=== PATIENT | male | born 1985 | race Caucasian/White ===

== ENCOUNTER 2019-06-15 22:51 | Emergency (ER) | payer SELFPAY ==
[~2019-06-15] VITALS: Ht 185.4 cm; Wt 79.2 kg
[~2019-06-15 22:51] MED LIST: CLON1TAB11 PO; ESCI20TA10 PO
--- NOTE | 2019-06-15 22:55 | NUR ---
MAC RN: NOT IN LOBBY
[2019-06-15 22:56] VITALS: BP 129/73
[2019-06-15 23:32] LABS: BASOPHILS % (AUTO) 1 % (0-1); EOSINOPHILS # (AUTO) 0.15 x10^3/uL (0-0.4); EOSINOPHILS % (AUTO) 2 % (1-7); LYMPHOCYTES # (AUTO) 2.16 x10^3/uL (1-3.4); LYMPHOCYTES % (AUTO) 30 % (22-44); MD NO; MEAN CORPUSCULAR HEMOGLOBIN 31.6 pg (27.5-34.5); MEAN CORPUSCULAR HGB CONC 33.7 g/dL (33.2-36.2); MEAN CORPUSCULAR VOLUME 93.8 fL (81-97); MEAN PLATELET VOLUME 8.2 fL (7.4-10.4); MONOCYTES % (AUTO) 8 % (2-9); NEUTROPHILS # (AUTO) 4.26 x10^3/uL (1.8-6.8); NEUTROPHILS % (AUTO) 59 % (42-75); PLATELET COUNT 199 x10^3/uL (130-400); RED BLOOD COUNT 4.16 x10^6/uL (4.38-5.82); RED CELL DISTRIBUTION WIDTH 14.9 % (9.4-14.8)
[2019-06-15 23:43] LABS: ANION GAP 8 mmol/L (5-15); CALCIUM 8.6 mg/dL (8.5-10.1); CHLORIDE 111 mmol/L (98-107); CREATININE 0.79 mg/dL (0.7-1.3)
--- NOTE | 2019-06-16 00:05 | NUR ---
Patient presents to ER with bilateral feet pain and swelling. Patient in room sleeping on [place].
--- NOTE | 2019-06-16 01:04 | NUR ---
Patient discharge instructions given. All questions and concerns addressed. Patient ambulatory with a steady gait. Belongings with patient.
== END 2019-06-16 01:05 | disposition home or self-care (01) ==
LOC: ED 06-16 00:40
DX: I83.12 Varicose veins of left lower extremity with inflammation (principal); I83.11 Varicose veins of right lower extremity with inflammation; M25.571 Pain in right ankle and joints of right foot; M25.572 Pain in left ankle and joints of left foot; F17.210 Nicotine dependence, cigarettes, uncomplicated; F15.10 Other stimulant abuse, uncomplicated
CPT/HCPCS: 36415; 80048; 85025; 99283

== ENCOUNTER 2019-07-27 07:01 | Emergency (ER) | payer MEDICAID ==
[~2019-07-27] VITALS: Ht 188 cm; Wt 78.7 kg
[2019-07-27 07:05] VITALS: BP 140/90
[2019-07-27] MEDS ORDERED: LORazepam 1MG TABLET PO ONE (07:30)
[2019-07-27] MEDS ORDERED: LORazepam 1MG TABLET ONE (07:40)
--- NOTE | 2019-07-27 07:45 | NUR ---
FIRST CONTACT WITH PT. PT STATES "I NEED TO SEE A PSYCHIATRIST. I NEED TO GET BACK ON MY MEDICATIONS" PT FROM [facility], "MY QUALITY OF LIFE HAS GONE FROM A 9 TO A NEGATIVE 2". DENIES SI, "I FEEL LIKE I'M ON THE VERGE OF A PSYCHOTIC BREAK, I CAN'T ADVOCATE FOR MYSELF." PT REGULARLY TAKES CLONAZEPAM. PT IS AGITATED AND ANXIOUS. PT'S AOX4. RESPS EVEN AND UNLABORED. DENIES SI/HI AT THIS TIME. PT STATES "I'M NOT SUICIDAL AT THIS TIME, NOT YET." PA AT BEDSIDE TO EVALUATE AT THIS TIME.
[2019-07-27 07:49] LABS: BASOPHILS # (AUTO) 0.17 x10^3/uL (0-0.1); BASOPHILS % (AUTO) 2 % (0-1); EOSINOPHILS # (AUTO) 0.01 x10^3/uL (0-0.4); EOSINOPHILS % (AUTO) 0 % (1-7); LYMPHOCYTES # (AUTO) 1.83 x10^3/uL (1-3.4); LYMPHOCYTES % (AUTO) 25 % (22-44); MD NO; MEAN CORPUSCULAR HEMOGLOBIN 31.6 pg (27.5-34.5); MEAN CORPUSCULAR HGB CONC 33.6 g/dL (33.2-36.2); MEAN CORPUSCULAR VOLUME 94.1 fL (81-97); MEAN PLATELET VOLUME 7.8 fL (7.4-10.4); MONOCYTES # (AUTO) 0.57 x10^3/uL (0.2-0.8); MONOCYTES % (AUTO) 8 % (2-9); NEUTROPHILS # (AUTO) 4.71 x10^3/uL (1.8-6.8); NEUTROPHILS % (AUTO) 65 % (42-75); PLATELET COUNT 312 x10^3/uL (130-400); RED BLOOD COUNT 4.42 x10^6/uL (4.38-5.82); RED CELL DISTRIBUTION WIDTH 13.6 % (9.4-14.8)
--- NOTE | 2019-07-27 07:50 | NUR ---
PT'S BELONGINGS(2BAGS AND 1BACKPACK) PUT INTO THE LOCKER.
--- NOTE | 2019-07-27 07:53 | NUR ---
pt medicated per emar for angiety. pt tolerated well.
--- NOTE | 2019-07-27 07:55 | NUR ---
URINE CUP/WATER/HOSPITAL SOCKS GIVEN AT THIS TIME.
[2019-07-27 08:02] LABS: ALANINE AMINOTRANSFERASE 231 U/L (12-78); ALBUMIN 3.7 g/dL (3.4-5.0); ANION GAP 6 mmol/L (5-15); CALCIUM 8.8 mg/dL (8.5-10.1); CHLORIDE 110 mmol/L (98-107); CREATININE 0.94 mg/dL (0.7-1.3)
[2019-07-27 08:05] LABS: ALKALINE PHOSPHATASE 70 U/L (45-117); BILIRUBIN,TOTAL 0.6 mg/dL (0.2-1.0); TOTAL PROTEIN 7.4 g/dL (6.4-8.2)
[2019-07-27 08:09] LABS: SALICYLATE LEVEL < 1.7 mg/dL (2.8-20.0)
--- NOTE | 2019-07-27 08:20 | NUR ---
PT AMB TO BR WITH STEADY GAIT.
[2019-07-27 09:03] LABS: AMPHETAMINE SCREEN, URINE Positive (Negative); BARBITURATE SCREEN, URINE Negative (Negative); BENZODIAZEPINE SCREEN, URINE Negative (Negative); CANNABINOID SCREEN, URINE Negative (Negative); COCAINE SCREEN, URINE Negative (Negative); METHADONE SCREEN, URINE Negative (Negative); OPIATE SCREEN, URINE Positive (Negative)
--- NOTE | 2019-07-27 09:23 | NUR ---
PT RESTING IN [facility]. PT'S AOX4. RESPS EVEN AND UNLABORED.
--- NOTE | 2019-07-27 09:50 | NUR ---
PT AMB TO BR WITH STEADY GAIT.
--- NOTE | 2019-07-27 10:24 | NUR ---
PT USING HOSPITAL COMPUTER. THIS RN EDUCATED REGARDING NOT USING HOSPITAL COMPUTER. PT STILL USING IT. CHARGE NURSE NOTIFIED AND SECURITY PAGED.
--- NOTE | 2019-07-27 11:42 | NUR ---
BREAK RN: PT HAS BEEN USING HIS CELL PHONE & WALKING AROUND ROOM. SNACKS PROVIDED. CARLYLE DALY APRN AT BEDSIDE NOW.
--- NOTE | 2019-07-27 12:37 | NUR ---
Patient given discharge instructions and they have confirmed that they understand the instructions. Patient ambulatory with steady gait.
== END 2019-07-27 12:38 | disposition home or self-care (01) ==
LOC: ED 10:14
DX: F41.1 Generalized anxiety disorder (principal); R06.4 Hyperventilation; F32.9 Major depressive disorder, single episode, unspecified; F11.129 Opioid abuse with intoxication, unspecified; F15.129 Other stimulant abuse with intoxication, unspecified; Z72.9 Problem related to lifestyle, unspecified; F17.210 Nicotine dependence, cigarettes, uncomplicated
CPT/HCPCS: 36415; 80053; 80307; 85025; 99283